=== PATIENT | female | born 2000 | race African-American/Black ===

== ENCOUNTER 2021-10-10 17:00 | Inpatient (IN) | payer OTHER ==
[2021-10-09 13:24] LABS: Hemoglobin 10.7 g/dL (12.0-15.5); Mean Corpuscular HGB CONC 33.6 g/dL (32.0-36.0); Mean Corpuscular Hemoglobin 30.7 pg (27.0-33.0); Mean Corpuscular Volume 91.1 fl (81.6-98.3); Mean Platelet Volume 11.1 fl (7.4-10.4); Platelet Count 185 10x3/uL (150-450); RBC Distribution Width 13.4 % (11.5-14.5); Red Blood Cell (RBC) Count 3.49 10x6/uL (3.90-5.03); White Blood Cell (WBC) Count 11.7 10x3/uL (3.5-10.5)
[2021-10-09 13:55] LABS: Hep B Surf Ag Non-Reactive S/CO (NonReactive); Syphilis Antibody Nonreactive (Nonreactive); Syphilis Antibody Index 0.05 S/CO (<1.00 Non-Reactive)
[2021-10-09 15:02] LABS: HBSAg Index 0.23 S/CO (0-0.99)
[2021-10-11] MEDS ORDERED: hydrALAZINE 20 MG/ML VIAL SLOW IVP PRN ×2 (04:14→14:47)
[2021-10-11] MEDS ORDERED: Promethazine HCl 25 MG/ML VIAL IM PRN ×3 (04:14→14:47)
[2021-10-11] MEDS ORDERED: Bicitra 30 ML UDCUP PO PRN (04:14)
[2021-10-11] MEDS ORDERED: Famotidine/PF 20 mg/2ml Vial SLOW IVP PRN (04:14)
[2021-10-11] MEDS ORDERED: Ondansetron PF 4 MG/2 ML Vial IVP PRN ×3 (04:14→14:47)
[2021-10-11] MEDS ORDERED: ceFAZolin 2 GM/Dextrose 50 ML 2 GM in Premix Bag 1 BAG IVPB SCH (04:15)
[2021-10-11] MEDS ORDERED: Lactated Ringer's 1,000 ML IV SCH (04:15)
[2021-10-11 11:31] VITALS: BMI 22.7
[2021-10-11] MEDS ORDERED: CEFAZOLIN 2 GM VIAL ONE (12:13)
[2021-10-11] MEDS ORDERED: Famotidine/PF 20 mg/2ml Vial ONE (12:13)
[2021-10-11] MEDS ORDERED: ePHEDrine Sulfate 50 MG/10 ML VIAL ONE (12:27)
[2021-10-11] MEDS ORDERED: Morphine PF 10 MG/10 ML VIAL ONE (12:27)
[2021-10-11] MEDS ORDERED: PHENYLEPHRINE-NS 100 MCG/ML 10 ML SYRINGE ONE (12:27)
[2021-10-11] MEDS ORDERED: Ondansetron PF 4 MG/2 ML Vial ONE (12:27)
[2021-10-11] MEDS ORDERED: Oxytocin 10 UNITS/ML VIAL ONE ×2 (12:28→13:38)
[2021-10-11] MEDS ORDERED: Phenylephrine 40 MG/NS 250 ML 250 ML ONE (12:28)
[2021-10-11] MEDS ORDERED: Ketorolac Tromethamine 30 MG/ML VIAL ONE (12:28)
[2021-10-11] MEDS ORDERED: Fentanyl 100 MCG/2 ML VIAL ONE (13:24)
[2021-10-11] MEDS ORDERED: Fentanyl 100 MCG/2 ML VIAL SLOW IVP PRN (13:51)
[2021-10-11] MEDS ORDERED: Meperidine HCl/PF 25 MG/ML VIAL SLOW IVP PRN (13:51)
[2021-10-11] MEDS ORDERED: Ondansetron HCl/PF 4 MG/2 ML Vial IVP PRN (13:51)
[2021-10-11] MEDS ORDERED: Promethazine HCl 25 MG SUPP PR PRN (13:51)
[2021-10-11] MEDS ORDERED: Moisturizing Cream (Eucerin) 113 GM JAR TOP PRN (13:51)
[2021-10-11] MEDS ORDERED: diphenhydrAMINE 50 MG/ML VIAL IVP PRN (13:51)
[2021-10-11] MEDS ORDERED: Naloxone HCl 0.4 mg/ml Vial IV PRN (13:51)
[2021-10-11] MEDS ORDERED: Naloxone HCl 0.4 mg/ml Vial IVP PRN ×2 (13:51)
[2021-10-11] MEDS ORDERED: Communication Order-Pharmacy FS SCH (14:00)
[2021-10-11] MEDS ORDERED: Bisacodyl 10 MG SUPP PR PRN (14:47)
[2021-10-11] MEDS ORDERED: Lanolin Ointment 7 GM TUBE TOP PRN (14:47)
[2021-10-11] MEDS ORDERED: diphenhydrAMINE 25 MG CAP PO PRN (14:47)
[2021-10-11] MEDS ORDERED: Zolpidem Tartrate 5 MG TAB PO PRN (14:47)
[2021-10-11] MEDS ORDERED: Varicella virus, LIVE 0.5 ML VIAL SC ONE (14:47)
[2021-10-11] MEDS ORDERED: Methylergonovine 0.2 MG/ML VIAL IM PRN (14:47)
[2021-10-11] MEDS ORDERED: Measles/Mumps/Rubella 10 MCG/0.5 ML VIAL SC ONE (14:47)
[2021-10-11] MEDS ORDERED: NS w/ Oxytocin 30 units 500 ML IV SCH (14:47)
[2021-10-11] MEDS ORDERED: Boostrix 0.5 ML (Tdap) VIAL IM ONE (14:47)
[2021-10-11] MEDS ORDERED: Meperidine HCl/PF 25 MG/ML VIAL ONE (16:12)
[2021-10-11] MEDS ORDERED: Ketorolac Tromethamine 30 MG/ML VIAL IVP SCH (19:25)
[2021-10-11] MEDS: Docusate 100 MG CAP PO SCH (20:55)
[2021-10-11] MEDS: Ferrous Sulfate 325 MG TAB PO SCH (20:55)
[2021-10-12] MEDS: Ketorolac Tromethamine 30 MG/ML VIAL IVP PRN ×2 (00:01→06:12)
[2021-10-12] MEDS: HYDROcodone/Acetaminophen 5/325 mg Tablet PO PRN ×4 (04:54→20:01)
[2021-10-12 05:01] LABS: Hemoglobin 9.8 g/dL (12.0-15.5); Mean Corpuscular HGB CONC 35.9 g/dL (32.0-36.0); Mean Corpuscular Hemoglobin 31.5 pg (27.0-33.0); Mean Corpuscular Volume 87.8 fl (81.6-98.3); Mean Platelet Volume 11.1 fl (7.4-10.4); Platelet Count 161 10x3/uL (150-450); RBC Distribution Width 13.2 % (11.5-14.5); Red Blood Cell (RBC) Count 3.11 10x6/uL (3.90-5.03); White Blood Cell (WBC) Count 16.7 10x3/uL (3.5-10.5)
[2021-10-12] MEDS: Ferrous Sulfate 325 MG TAB PO SCH ×2 (08:53→21:20)
[2021-10-12] MEDS: Docusate 100 MG CAP PO SCH ×2 (08:53→21:20)
[2021-10-12] MEDS: Prenatal Vitamin 1 TAB PO SCH (08:53)
[2021-10-12] MEDS: Ibuprofen 800 MG TAB PO SCH ×2 (14:14→21:20)
[2021-10-12] MEDS: Simethicone Chewable 80 MG TAB PO PRN (20:02)
[2021-10-13] MEDS: HYDROcodone/Acetaminophen 5/325 mg Tablet PO PRN ×2 (04:21→13:39)
[2021-10-13] MEDS: Simethicone Chewable 80 MG TAB PO PRN (04:21)
[2021-10-13] MEDS: Ibuprofen 800 MG TAB PO SCH ×2 (06:21→13:38)
[2021-10-13 08:12] VITALS: BP 120/72; TEMP 98
[2021-10-13] MEDS: Ferrous Sulfate 325 MG TAB PO SCH (08:31)
[2021-10-13] MEDS: Docusate 100 MG CAP PO SCH (08:31)
[2021-10-13] MEDS: Prenatal Vitamin 1 TAB PO SCH (08:31)
== END 2021-10-13 20:20 | disposition home or self-care (01) | DRG 788 ==
LOC: CSHLD 10-11 09:58 → CSHPED 10-11 16:35
PROVIDERS: ADMIT Obstetrics & Gynecology; ATTEND Obstetrics & Gynecology
PROC: 10D00Z1 Extraction of Products of Conception, Low, Open Approach (ICD-10-PCS; principal; 2021-10-11)
DX: O32.1XX0 Maternal care for breech presentation, not applicable or unspecified (principal); Z3A.39 39 weeks gestation of pregnancy; Z37.0 Single live birth; Z20.822 Contact with and (suspected) exposure to COVID-19
CPT/HCPCS: 36415; 51702; 85027; 86780; 86850; 86900; 86901; 87340; J0690; J1885; J2175; J2274; J2405; J2590; J3010; S0028; U0003; U0005

== ENCOUNTER 2021-10-17 17:08 | Emergency (ER) | payer OTHER ==
[2021-10-17 17:55] LABS: Hemoglobin 9.8 g/dL (12.0-15.5); MDiff Complete? YES; Mean Corpuscular HGB CONC 33.7 g/dL (32.0-36.0); Mean Corpuscular Hemoglobin 30.1 pg (27.0-33.0); Mean Corpuscular Volume 89.3 fl (81.6-98.3); Mean Platelet Volume 9.8 fl (7.4-10.4); Platelet Count 301 10x3/uL (150-450); RBC Distribution Width 12.8 % (11.5-14.5); Red Blood Cell (RBC) Count 3.26 10x6/uL (3.90-5.03); White Blood Cell (WBC) Count 9.2 10x3/uL (3.5-10.5)
[2021-10-17 18:12] LABS: ALT (SGPT) 20 U/L (8-55); AST (SGOT) 20 U/L (5-34); Albumin 3.5 g/dL (3.5-5.0); Alkaline Phosphatase 123 U/L (40-100); Anion Gap 14 mmol/L (10-20); BUN (Urea Nitrogen) 9 mg/dL (7.0-18.7); Bilirubin, Total 0.4 mg/dL (0.2-1.2); Calc. Creatinine Clearance 0 mL/min (70-130); Calcium 9.2 mg/dL (7.8-10.44); Carbon Dioxide 22 mmol/L (22-29); Chloride 105 mmol/L (98-107); Estimated GFR 131; Globulin 2.9 g/dL (2.4-3.5); Glucose 87 mg/dL (70-105); Potassium 3.7 mmol/L (3.5-5.1); Protein, Total 6.4 g/dL (6.0-8.3); Sodium 137 mmol/L (136-145)
[2021-10-17 18:24] LABS: Bilirubin Neg (Negative); Blood, Urine 25 (Negative); Clarity Clear (Clear); Glucose, Urine (Dipstick) Normal (Negative); Ketone, Urine Negative (Negative); Leukocyte Negative (Negative); Nitrite Negative (Negative); Protein, Urine (Dipstick) Negative (Neg-Trace)
[2021-10-17 18:35] LABS: Lymphocytes 5 % (28-48); Monocytes 16 % (0-4)
[2021-10-17 18:36] LABS: Eosinophils 2 % (0-10); Neutrophil 77 % (31-61)
[2021-10-17 19:17] LABS: SARS-CoV-2 NAA Rapid Test DETECTED (NotDetected)
[2021-10-17 19:39] LABS: Bacteria/HPF None Seen HPF (None Seen); RBC/HPF 0-3 HPF (0-3); Squamous Epithelial 0-3 HPF (0-3); WBC/HPF None Seen HPF (0-3)
== END 2021-10-17 19:50 | disposition home or self-care (01) ==
LOC: CSHERS 17:08
DX: U07.1 COVID-19 (principal)
CPT/HCPCS: 36415; 80053; 81003; 81015; 85025; 99283; U0002